=== PATIENT | male | born 1945 | race Hispanic/Latino ===

== ENCOUNTER → 2021-03-18 | Outpatient (CLI) | payer MEDICARE | END | disposition home or self-care (01) | LOC: RAH 09:56 | PROVIDERS: ATTEND Otolaryngology Plastic Surgery within the Head & Neck | DX: R13.10 Dysphagia, unspecified (principal); R49.8 Other voice and resonance disorders; R49.0 Dysphonia | CPT/HCPCS: 74230; 92611 ==